=== PATIENT | female | born 1985 ===

== ENCOUNTER 2020-12-21 11:29 | Emergency (ER) | payer MEDICAID ==
[2020-12-21 12:01] VITALS: BP 116/60
[2020-12-21] MEDS ORDERED: ONDANSETRON 4 MG/2 ML INJ IV ONE (12:13)
[2020-12-21] MEDS ORDERED: HYDROmorphone 2 MG/1 ML INJ IV ONE (12:13)
[2020-12-21] MEDS ORDERED: diphenhydrAMINE 50 MG/ML VIAL IV ONE ×2 (12:14→17:17)
--- NOTE | 2020-12-21 12:17 | Emergency Department Report ---
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 Patient states she was on anticoagulation in the past but it was discontinued 6 months ago by her doctor since she had gone quite a while without a recurrent clot and was scheduled for multiple surgical procedures include kidney biopsy. Four days ago on the 12/17 patient had outpatient right knee surgery for tendon injury after dislocation. The next day she developed chest pain and shortness of breath. They were unable to obtain adequate IV for CT angiogram chest therefore she was empirically started on Xarelto for presumed pulmonary embolism. Patient took Xarelto for 2 days but could not tolerate medicine yesterday secondary to nausea and vomiting which exacerbated the pain. Patient was also unable to tolerate her pain medication due to vomiting. Patient caught her [place] affiliated orthopedic surgeon Dr. Alonso was advised to go to the closest ER. Patient complains of severe anterior sharp chest pain that is worse with deep inspiration. Symptoms worse when lying supine. Pain makes it hard to breathe. She has post operative right knee pain with swelling. She has pain and swelling to left hand thenar area since starting to use crutches. Patient has a history of high pain tolerance. Has been treated with ketamine drip in the past but discontinued due to hallucinations. Has been prescribed Percocet 5 mg status post her knee surgery. Patient also complains of generalized pruritus since her surgery and think she was allergic to start the provided during the surgery Severity scale (0 -10): 8 - Related Data Home Medications Medication Instructions Recorded Confirmed Last Taken Xarelto Starter Pack 12/21/20 12/20/20 Previous Rx's Medication Instructions Recorded Last Taken Type Prochlorperazine Maleate 10 mg PO 4XD PRN #20 tablet 12/21/20 Unknown Rx [Compazine] Allergies Allergy/AdvReac Type Severity Reaction Status Date / Time dolasetron [From Anzemet] Allergy Hives Verified 12/21/20 12:05 fentanyl Allergy Swelling Verified 12/21/20 11:31 zolmitriptan [From Zomig] Allergy Swelling Verified 12/21/20 11:31 Heart Score - HEART Score History: Slightly suspicious EKG: Normal Age: < 45 Risk factors: 1-2 risk factors Troponin: < normal limit HEART Score: 1 - EKG Read Time Time EKG Completed: 12:30 EKG Read Time: 12:34 ED Review of Systems ROS: Stated complaint: PE Other details as noted in HPI Comment: All other systems reviewed and negative ED Past Medical Hx - Past Medical History Hx Deep Vein Thrombosis: Yes (Multiple approximately 30) Hx Pulmonary Embolism: Yes (Multiple approximately 6) Additional medical history: Wilma's disease. Focal sclerosing glomerulosclerosis - Surgical History Hx Appendectomy: Yes Additional Surgical History: COLON. Knee surgery 11/2020 - Social History Smoking Status: Current Some Day Smoker Substance Use Type: None - Medications Home Medications: Home Medications Medication Instructions Recorded Confirmed Last Taken Type Prochlorperazine Maleate 10 mg PO 4XD PRN #20 tablet 12/21/20 Unknown Rx [Compazine] Xarelto Starter Pack 12/21/20 12/20/20 History ED Physical Exam - General Limitations: No Limitations - Other Other exam information: General: Moderate distress secondary Head: Atraumatic Eyes: normal appearance ENT: Moist mucous membranes Neck: Normal appearance, no midline tenderness Chest: Clear to auscultation bilaterally, chest wall nontender, pain with deep inspiration CV: Regular rate and rhythm Abdomen: Soft, normal bowel sounds, nontender, nondistended, no rebound or guarding Back: Normal inspection Extremity: Right knee postoperative swelling with Dermabond skin closure. No focal erythema, warmth, or rash. Neuro: Alert O x 3, no facial asymmetry, speech clear, no gross motor sensory deficit Psych: Appropriate behavior Skin: Generalized excoriations from reported pruritus ED Course Vital Signs 12/21/20 12/21/20 12/21/20 11:35 11:59 12:00 Temperature 97.9 F 98.2 F 98.2 F Pulse Rate 85 79 79 Respiratory 20 12 12 Rate Blood Pressure 107/85 116/60 Blood Pressure 116/60 [Left] O2 Sat by Pulse 100 98 98 Oximetry 12/21/20 12:03 Temperature Pulse Rate Respiratory 12 Rate Blood Pressure Blood Pressure [Left] O2 Sat by Pulse 98 Oximetry BOYD score - Boyd Score Age > 65: (0) No Aspirin use within the Past 7 Days: (0) No 3 or more CAD Risk Factors: (0) No 2 or more Angina events in past 24 hrs: (0) No Known CAD with more than 50% Stenosis: (0) No Elevated Cardiac Markers: (0) No ST Deviation Greater than 0.5mm: (0) No BOYD Score: 0 ED Medical Decision Making - Lab Data Result diagrams: 12/21/20 12:14 12/21/20 12:14 Lab Results 12/21/20 12/21/20 12/21/20 Range/Units 12:14 12:14 12:14 WBC 6.4 (4.5-11.0) K/mm3 RBC 3.70 (3.65-5.03) M/mm3 Hgb 10.2 (10.1-14.3) gm/dl Hct 31.5 (30.3-42.9) % MCV 85 (79-97) fl MCH 28 (28-32) pg MCHC 32 (30-34) % RDW 14.3 (13.2-15.2) % Plt Count 163 (140-440) K/mm3 Lymph % (Auto) 10.5 L (13.4-35.0) % Hale % (Auto) 3.9 (0.0-7.3) % Eos % (Auto) 1.0 (0.0-4.3) % Baso % (Auto) 0.1 (0.0-1.8) % Lymph # (Auto) 0.7 L (1.2-5.4) K/mm3 Hale # (Auto) 0.2 (0.0-0.8) K/mm3 Eos # (Auto) 0.1 (0.0-0.4) K/mm3 Baso # (Auto) 0.0 (0.0-0.1) K/mm3 Seg Neutrophils % 84.5 H (40.0-70.0) % Seg Neutrophils # 5.4 (1.8-7.7) K/mm3 PT 16.0 H (12.2-14.9) Sec. INR 1.16 H (0.87-1.13) APTT 38.6 H (24.2-36.6) Sec. Sodium 135 L (137-145) mmol/L Potassium 4.1 (3.6-5.0) mmol/L Chloride 101.3 (98-107) mmol/L Carbon Dioxide 22 (22-30) mmol/L Anion Gap 16 mmol/L BUN 18 H (7-17) mg/dL Creatinine 1.0 (0.6-1.2) mg/dL Estimated GFR > 60 ml/min BUN/Creatinine Ratio 18 % Glucose 91 (65-100) mg/dL Calcium 8.7 (8.4-10.2) mg/dL Troponin T (0.00-0.029) ng/mL HCG, Qual (Negative) 12/21/20 12/21/20 Range/Units 12:14 12:21 WBC (4.5-11.0) K/mm3 RBC (3.65-5.03) M/mm3 Hgb (10.1-14.3) gm/dl Hct (30.3-42.9) % MCV (79-97) fl MCH (28-32) pg MCHC (30-34) % RDW (13.2-15.2) % Plt Count (140-440) K/mm3 Lymph % (Auto) (13.4-35.0) % Hale % (Auto) (0.0-7.3) % Eos % (Auto) (0.0-4.3) % Baso % (Auto) (0.0-1.8) % Lymph # (Auto) (1.2-5.4) K/mm3 Hale # (Auto) (0.0-0.8) K/mm3 Eos # (Auto) (0.0-0.4) K/mm3 Baso # (Auto) (0.0-0.1) K/mm3 Seg Neutrophils % (40.0-70.0) % Seg Neutrophils # (1.8-7.7) K/mm3 PT (12.2-14.9) Sec. INR (0.87-1.13) APTT (24.2-36.6) Sec. Sodium (137-145) mmol/L Potassium (3.6-5.0) mmol/L Chloride (98-107) mmol/L Carbon Dioxide (22-30) mmol/L Anion Gap mmol/L BUN (7-17) mg/dL Creatinine (0.6-1.2) mg/dL Estimated GFR ml/min BUN/Creatinine Ratio % Glucose (65-100) mg/dL Calcium (8.4-10.2) mg/dL Troponin T < 0.010 (0.00-0.029) ng/mL HCG, Qual Negative (Negative) - EKG Data -: EKG Interpreted by Me EKG shows normal: sinus rhythm, ST-T waves (no stemi) Rate: normal (73) - Radiology Data Radiology results: report reviewed CHEST 1 VIEW 12/21/2020 1:33 PM INDICATION / CLINICAL INFORMATION: Shortness of breath. COMPARISON: None available. FINDINGS: SUPPORT DEVICES: None. HEART / MEDIASTINUM: The heart size and pulmonary vasculature are normal. There is an endovascular stent graft in the expected location of the SVC. LUNGS / PLEURA: No significant pulmonary or pleural abnormality. No pneumothorax. ADDITIONAL FINDINGS: No significant additional findings. IMPRESSION: No acute findings. LEFT HAND 3 VIEWS INDICATION / CLINICAL INFORMATION: Left hand pain and swelling at thenar area. COMPARISON: None available. FINDINGS: BONES / JOINT(S): The joint spaces are well-maintained. No significant arthritis. There is no evidence of fracture, subluxation or destructive lesion. SOFT TISSUES: No significant abnormality. I do not identify a radiopaque foreign body. ADDITIONAL FINDINGS: None. IMPRESSION: No acute abnormality is identified. - Medical Decision Making 35-year-old female presents to the hospital complaints of pleuritic chest pains. Multiple pulmonary emboli and DVTs in the past presented with complaints of pleuritic chest pain after right knee surgery while not on anticoagulation. She was apparently started on Xarelto given her clinical history. At time of presentation she complains of severe pleuritic chest pain in addition to vomiting with p.o. intolerance of her medications and concerned that she needs imaging to diagnose of pulmonary embolism. Patient does not have any hypoxia. She is medicated with multiple doses of Dilaudid, Benadryl for itching/pruritus, Ativan, and Zofran. Chest x-ray, troponin, EKG unremarkable patient signed out to oncoming provider to follow-up on imaging results/V/Q Differential includes but not limited to pulmonary embolism, FL, pleurisy, costochondritis Critical Care Time: No Critical care attestation.: If time is entered above; I have spent that time in minutes in the direct care of this critically ill patient, excluding procedure time. ED Disposition Clinical Impression: Status post right knee replacement, History of pulmonary embolus (PE) Contusion of left hand Qualifiers: Encounter type: initial encounter Qualified Code(s): S60.222A - Contusion of left hand, initial encounter Chest pain Qualifiers: Chest pain type: chest pain on breathing Qualified Code(s): R07.1 - Chest pain on breathing Vomiting Qualifiers: Vomiting type: unspecified Vomiting Intractability: non-intractable Nausea presence: with nausea Qualified Code(s): R11.2 - Nausea with vomiting, unspecified Disposition: HOME / SELF CARE / HOMELESS Is pt being admited?: No Condition: Stable Instructions: Nonspecific Chest Pain, Adult, Nausea and Vomiting, Adult, [id number], Contusion, [id number], How to Use Cold Therapy, Pain Without a Known Cause Additional Instructions: Have a bland diet. Drink plenty water. Return for problems. Ice your arm. Continue home medication. Take the blood thinners. Follow-up with your regular doctor. If you do not have a regular doctor, follow-up with the referral physician. Prescriptions: Prochlorperazine Maleate [Compazine] 10 mg PO 4XD PRN #20 tablet PRN Reason: Nausea Referrals: GEORGINA YOO MD [Staff Physician] - 3-5 Days PRIMARY CAREMD [Primary Care Provider] - 3-5 Days
[2020-12-21 12:49] LABS: BUN/Creatinine Ratio 18; Blood Urea Nitrogen 18 mg/dL (7-17); Calcium 8.7 mg/dL (8.4-10.2); Hemolysis Index 3
[2020-12-21 12:56] LABS: Basophils % (Auto) 0.1 % (0.0-1.8); Eosinophils # (Auto) 0.1 K/mm3 (0.0-0.4); Hematocrit 31.5 % (30.3-42.9); Hemoglobin 10.2 gm/dl (10.1-14.3); Lymphocytes # (Auto) 0.7 K/mm3 (1.2-5.4); Lymphocytes % (Auto) 10.5 % (13.4-35.0); Mean Corpuscular HGB Conc 32 % (30-34); Mean Corpuscular Volume 85 fl (79-97); Monocytes # (Auto) 0.2 K/mm3 (0.0-0.8); Monocytes % (Auto) 3.9 % (0.0-7.3); Platelet Count 163 K/mm3 (140-440); Red Cell Distribution Width 14.3 % (13.2-15.2)
[2020-12-21 13:06] LABS: INR 1.16 (0.87-1.13)
[2020-12-21 13:07] LABS: Partial Thromboplastin Time 38.6 Sec. (24.2-36.6)
--- NOTE | 2020-12-21 14:06 | XRay Report ---
CHEST 1 VIEW 12/21/2020 1:33 PM INDICATION / CLINICAL INFORMATION: Shortness of breath. COMPARISON: None available. FINDINGS: SUPPORT DEVICES: None. HEART / MEDIASTINUM: The heart size and pulmonary vasculature are normal. There is an endovascular st ent graft in the expected location of the SVC. LUNGS / PLEURA: No significant pulmonary or pleural abnormality. No pneumothorax. ADDITIONAL FINDINGS: No significant additional findings. IMPRESSION: No acute findings. Signer Name: Faustino Rice MD Signed: 12/21/2020 2:02 PM Workstation Name: [id number]
--- NOTE | 2020-12-21 14:08 | XRay Report ---
LEFT HAND 3 VIEWS INDICATION / CLINICAL INFORMATION: Left hand pain and swelling at thenar area. COMPARISON: None available. FINDINGS: BONES / JOINT(S): The joint spaces are well-maintained. No significant arthritis. There is no evidenc e of fracture, subluxation or destructive lesion. SOFT TISSUES: No significant abnormality. I do not identify a radiopaque foreign body. ADDITIONAL FINDINGS: None. IMPRESSION: No acute abnormality is identified. Signer Name: Faustino Rice MD Signed: 12/21/2020 2:03 PM Workstation Name: [id number]
[2020-12-21] MEDS ORDERED: HYDROmorphone 1 MG/1 ML INJ IV ONE (14:30)
[2020-12-21] MEDS ORDERED: LORazepam 2 MG/ML VIAL IV ONE (14:30)
--- NOTE | 2020-12-21 16:29 | Nuclear Medicine Report ---
NUCLEAR MEDICINE PERFUSION LUNG SCAN INDICATION / CLINICAL INFORMATION: Chest pain, shortness of breath and history of PTE. TECHNIQUE: 5.0 mCi of Tc-99m MAA were given by IV. COMPARISON: Chest radiograph dated 12/21/20 at 1:33 PM. FINDINGS: PERFUSION: There is a single small to moderate segmental perfusion defect in the left mid lung. ADDITIONAL FINDINGS: No corresponding abnormality is seen on the current chest radiograph. IMPRESSION: Indeterminate probability for pulmonary embolism. Signer Name: Faustino Rice MD Signed: 12/21/2020 4:24 PM Workstation Name: [id number]
[2020-12-21] MEDS ORDERED: HALOPERIDOL LACTATE 5 MG/1 ML INJ IV ONE (17:17)
--- NOTE | 2020-12-21 17:20 | Emergency Department Report ---
Blank Doc - Documentation Documentation: Accepted care from Dr. Diana. VQ scan and labs are pending. VQ scan was reviewed. Labs reviewed. At this time, patient was treated symptomatically for a likely pulmonary embolism. She had an indeterminate VQ scan, prior history, and had already been started on Xarelto. We will continue that. She was maintained on anticoagulation. She was maintained on her postoperative analgesics. She was provided a family physician for follow-up.
[2020-12-21] MEDS ORDERED: KETOROLAC 30 MG/1 ML INJ IV ONE (18:08)
--- NOTE | 2020-12-24 18:47 | Electrocardiograph Report ---
[facility] Test Date: 2020-12-21 Test Time: 12:30:36 Pat Name: MAURO DOW Department: Room: Gender: F [employer]: LILLIE : 1985 Requested By: NICHOLE JAMES Order Number: [id number] Reading MD: Shakir De Dios Measurements Intervals [place] Rate: 73 P: 43 WV: 158 QRS: 35 QRSD: 76 T: 27 QT: 381 QTc: 420 Interpretive Statements Sinus rhythm No previous ECG available for comparison Electronically Signed On 12-24-2020 18:47:00 EDT by Shakir De Dios
== END 2020-12-21 18:24 | disposition home or self-care (01) ==
LOC: ED 11:29
DX: S60.222A Contusion of left hand, initial encounter (principal); R07.89 Other chest pain; R11.10 Vomiting, unspecified; F17.200 Nicotine dependence, unspecified, uncomplicated; Z90.49 Acquired absence of other specified parts of digestive tract; Z98.890 Other specified postprocedural states; Z86.711 Personal history of pulmonary embolism; Z86.718 Personal history of other venous thrombosis and embolism; Z88.8 Allergy status to other drugs, medicaments and biological substances; Z79.899 Other long term (current) drug therapy; X58.XXXA Exposure to other specified factors, initial encounter; Y93.89 Activity, other specified; Y92.89 Other specified places as the place of occurrence of the external cause; Y99.8 Other external cause status
CPT/HCPCS: 36415; 71045; 73130; 78580; 80048; 84484; 84703; 85025; 85610; 85730; 93005; 96374; 96375; 96376; 99284; A9540; J1170; J1200; J2060; J2405; J1630; J1885

== ENCOUNTER 2021-04-27 11:11 | Emergency (ER) | payer MEDICARE ==
[2021-04-27 11:21] VITALS: BP 142/81
[2021-04-27] MEDS ORDERED: HYDROmorphone 1 MG/1 ML INJ IV ONE ×2 (11:35→11:51)
[2021-04-27] MEDS ORDERED: METOCLOPRAMIDE 10 MG/2 ML INJ IV ONE (11:37)
--- NOTE | 2021-04-27 11:40 | Emergency Department Report ---
ED General Adult HPI - General Chief complaint: Abdominal Pain Stated complaint: Abdominal pain Time Seen by Provider: 04/27/21 11:24 Source: patient, RN notes reviewed Mode of arrival: Wheelchair Limitations: Physical Limitation - History of Present Illness Initial comments: Private film library clerk at [facility]; Dr. James Arreola The patient is a 35-year-old female. 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 She is referred to the emergency room by her film library clerk. The patient complains of severe diffuse abdominal pain, and she is accompanied by a electric gas appliances demonstrator who endorses that the patient appeared to be confused and not making sense yesterday. Patient reports nausea, low-grade temperature to 100 degrees, denies severe headache, chest pain, diarrhea, dysuria, focal extremity weakness and numbness. She endorses diffuse pruritus. Patient reports that secondary to her multiple chronic issues, she has significant tolerance for opioids, and sometimes has received up to 70 mg of morphine, as well as having received up to 4 to 6 mg ofhydromorphone at once. She received 1 mg of hydromorphone x2 in the emergency room, and this moderately improved her symptoms. She also reports a history of PTSD and anxiety. -: Gradual, hour(s) Location: abdomen Consistency: constant Improves with: medication Worsens with: movement - Related Data Home Medications Medication Instructions Recorded Confirmed Last Taken Xarelto Starter Pack 12/21/20 12/20/20 Previous Rx's Medication Instructions Recorded Last Taken Type Prochlorperazine Maleate 10 mg PO 4XD PRN #20 tablet 12/21/20 Unknown Rx [Compazine] Felix Root [Felix] 250 mg PO QID PRN #30 capsule 04/27/21 Unknown Rx Metoclopramide [Reglan] 10 mg PO QID PRN #30 tablet 04/27/21 Unknown Rx Promethazine [Phenergan SUPPOS] 50 mg NH Q6H PRN #15 04/27/21 Unknown Rx Allergies Allergy/AdvReac Type Severity Reaction Status Date / Time dolasetron [From Anzemet] Allergy Hives Verified 12/21/20 12:05 fentanyl Allergy Swelling Verified 12/21/20 11:31 zolmitriptan [From Zomig] Allergy Swelling Verified 12/21/20 11:31 ED Review of Systems ROS: Stated complaint: SURGERY COMPLICATIONS Other details as noted in HPI Constitutional: fever, malaise, weakness Eyes: denies: eye discharge Respiratory: denies: cough Cardiovascular: denies: chest pain Gastrointestinal: abdominal pain, nausea Genitourinary: denies: dysuria Musculoskeletal: myalgia Skin: pruritus Neurological: weakness, confusion Psychiatric: anxiety ED Past Medical Hx - Past Medical History Hx Deep Vein Thrombosis: Yes (Multiple approximately 30) Hx Pulmonary Embolism: Yes (Multiple approximately 6) Additional medical history: Wilma's disease. Focal sclerosing glomerulosclerosis - Surgical History Hx Appendectomy: Yes Additional Surgical History: COLON. Knee surgery 11/2020 - Social History Smoking Status: Current Some Day Smoker Substance Use Type: None - Medications Home Medications: Home Medications Medication Instructions Recorded Confirmed Last Taken Type Prochlorperazine Maleate 10 mg PO 4XD PRN #20 tablet 12/21/20 Unknown Rx [Compazine] Xarelto Starter Pack 12/21/20 12/20/20 History Felix Root [Felix] 250 mg PO QID PRN #30 capsule 04/27/21 Unknown Rx Metoclopramide [Reglan] 10 mg PO QID PRN #30 tablet 04/27/21 Unknown Rx Promethazine [Phenergan SUPPOS] 50 mg NH Q6H PRN #15 04/27/21 Unknown Rx ED Physical Exam - General Limitations: Physical Limitation, Other (Chaperoned by nurse Mervat Cardenas) General appearance: alert, anxious, in distress, obese - Head Head exam: Present: atraumatic, normocephalic - Eye Eye exam: Present: normal appearance, EOMI. Absent: nystagmus - ENT ENT exam: Present: normal exam, normal orophraynx, mucous membranes moist, normal external ear exam - Neck Neck exam: Present: normal inspection, full ROM. Absent: tenderness, meningismus - Respiratory Respiratory exam: Present: normal lung sounds bilaterally. Absent: respiratory distress, wheezes, rales, rhonchi, stridor, decreased breath sounds - Cardiovascular Cardiovascular Exam: Present: regular rate, normal rhythm, normal heart sounds. Absent: bradycardia, tachycardia, irregular rhythm, systolic murmur, diastolic murmur, rubs, gallop - GI/Abdominal GI/Abdominal exam: Present: soft, tenderness, guarding, other (The abdomen is diffusely tender. Surgical sites do not have any redness, pus or streaking). Absent: distended, rebound, rigid, pulsatile mass - Extremities Exam Extremities exam: Present: normal inspection, full ROM, pedal edema, other (2+ pulses noted in the bilateral upper and lower extremities. There is no palpable cord. negative Homans sign. Muscular compartments are soft. The pelvis is stable.). Absent: calf tenderness - Back Exam Back exam: Present: normal inspection. Absent: tenderness, CVA tenderness (R), CVA tenderness (L), paraspinal tenderness, vertebral tenderness - Neurological Exam Neurological exam: Present: alert, oriented X3, other (No facial droop. Tongue midline. Extraocular movements intact bilaterally. Facial sensation intact to light touch in V1, V2, V3 distribution bilaterally. 5 and a 5 strength in 4 extremities. Sensation intact to light touch in 4 extremities.). Absent: motor sensory deficit - Psychiatric Psychiatric exam: Present: anxious - Skin Skin exam: Present: warm, dry, intact, normal color. Absent: rash ED Course Vital Signs 04/27/21 04/27/21 04/27/21 11:19 12:17 15:07 Temperature 98.1 F Pulse Rate 80 Respiratory 20 Rate Blood Pressure 142/81 O2 Sat by Pulse 98 100 Oximetry O2 Sat by Pulse 98 Oximetry [ Digit-Finger] 04/27/21 16:30 Temperature 97.6 F Pulse Rate 89 Respiratory 18 Rate Blood Pressure O2 Sat by Pulse 98 Oximetry O2 Sat by Pulse Oximetry [ Digit-Finger] - Reevaluation(s) Reevaluation #1: 04/27/21 12:30 Differential diagnosis, including but not limited to: Internal bleeding, abdominal infection, postsurgical complication, intracranial hemorrhage, electrolyte derangement, thyroid derangement, narcotic bowel syndrome, chronic abdominal pain Assessment and plan: 35-year-old female, who is afebrile, with reassuring vital signs, who is clinically sober, presenting with diffuse abdominal pain, an episode of resolved alteration in consciousness. There is no history of trauma. Patient placed on cardiac tech. IV access established. She was given hydromorphone 1 mg x 2, and started on IV fluids. Her EKG is unremarkable. Noncontrast CT scan of the brain, CT scan of the abdomen pelvis with IV contrast will be obtained. We did recommend CT scan of the abdomen pelvis with IV and oral contrast, however, the patient endorsed that she would not be able to drink oral contrast or tolerated. She is hemodynamically stable at this time, protecting her airway, and still in distress, we will reassess after completion of her ER work-up. We will discuss with her surgeon once her initial diagnostic studies have resulted 04/27/21 14:58 I have evaluated this patient multiple times since my initial ER evaluation. After 2 mg of hydromorphone, the patient is sleeping comfortably, in her stretcher, and in no acute distress. Her CT scan of the brain is unremarkable. CT scan of the abdomen pelvis unremarkable for postsurgical findings, demonstrates expected postoperative findings. I contacted her surgeon of record, Dr. Arreola; we discussed the patient's history, physical, laboratory studies imaging studies, and overall clinical impression. Given objective findings, patient improvement, her surgeon advises that it is unlikely to be of any significant utility to transfer this patient for his evaluation this evening, and he further advises that he will be happy to see the patient first thing tomorrow morning at 8:30 in the morning. He also advises that this patient received 26 tablets of Percocet on Wednesday from him. He further advises that this patient's chart and did flagged as possible for na rcotic diversion on the [place] prescription database. There may be a component of narcotic tolerance and/or narcotic seeking tendencies for this patient. However, she is cooperative at this time. I have gone back and discussed the plan of care with the patient to be discharged to follow-up with her surgeon first thing tomorrow morning. She is agreeable to this plan of care. 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 04/26/2021 04/25/2021 1 Oxycodone-Acetaminophen 5-325 26.00 5 Mi Ran [id number] [facility] (2302) 0 39.00 [place]ME [place] 04/21/2021 04/21/2021 1 Qiyhjw-Sutpvrxq-Kxlq 50-325-40 15.00 5 Vi Ran [id number] [facility] (2302) 0 1.50 LME [place] 03/12/2021 03/12/2021 1 Diphenoxylate-Atrop 2.5-0.025 12.00 2 Ja Yos [id number] [facility] (2302) 0 0.00 [place] 03/12/2021 03/10/2021 1 Acetaminophen-Cod #3 Tablet 30.00 5 Ja Yos [id number] [facility] (2302) 0 27.00 MME Medicare [place] 02/10/2021 02/10/2021 1 Hydrocodone-Acetamin 5-325 Mg 24.00 6 Ed Asim [id number] [facility] (2302) 0 20.00 [place]ME [place] 01/09/2021 01/09/2021 1 Oxycodone-Acetaminophen 5-325 24.00 6 Ed Asim [id number] Chris (9261) 0 30.00 MME [place] 12/17/2020 12/17/2020 1 Oxycodone-Acetaminophen 5-325 24.00 6 Ed Asim [id number] [facility] (3289) 0 30.00 MME [place] 12/17/2020 12/12/2020 1 Zolpidem Tartrate 5 Mg Tablet 10.00 10 Ed Asim [id number] [facility] (3289) 0 0.25 LME [place] Disclaimer Showing 1-8 of 8 Items View 15 Items 1 of 1 Providers Total: 4 Showing 1-4 of 4 Items View 15 Items 1 of 1 Name Address City State Zipcode Phone James Arreola MD [address] [facility] [address] [facility] [id number] Molina Lagunas MD [address] [facility] [address] [phone] Murray Wright V, MD [address] [place] [id number] Hugo Alonso Ii, Md, Ii [address], [address] [facility] [id number] Showing 1-4 of 4 Items View 15 Items 1 of 1 Pharmacies Total: 3 Showing 1-3 of 3 Items View 15 Items 1 of 1 Name Address City State Zipcode Phone [facility] [phone] [facility] [address] [facility] [phone] [place] [address] [facility] [phone] [facility] [address] [facility] [address] 04/27/21 15:05 Patient taking Percocet/Tylenol as prescribed. This is the most likely reason for the patient having a Tylenol level of 10.2. She is not homicidal or suicidal - EJ/Peripheral Line Neck L Time Out Performed: Yes Indications: nurses unable to establis Skin Cleansed in Sterile Fashion: Yes Size: 18 Dressing Placed: Tegaderm Patient Tolerated Procedure: well - Pulse Oximetry Interpretation Digit-Finger Initial Pulse Oximetry Readin O2 Sat by Pulse Oximetry: 98 Actions Taken: none ED Medical Decision Making - Lab Data Result diagrams: 04/27/21 11:52 04/27/21 11:52 Vital Signs 04/27/21 11:19 Temperature 98.1 F Pulse Rate 80 Respiratory 20 Rate Blood Pressure 142/81 O2 Sat by Pulse 98 Oximetry Lab Results 04/27/21 04/27/21 04/27/21 Range/Units 11:52 11:52 11:52 WBC 7.7 (4.5-11.0) K/mm3 RBC 3.44 L (3.65-5.03) M/mm3 Hgb 9.6 L (10.1-14.3) gm/dl Hct 28.6 L (30.3-42.9) % MCV 83 (79-97) fl MCH 28 (28-32) pg MCHC 34 (30-34) % RDW 13.8 (13.2-15.2) % Plt Count 215 (140-440) K/mm3 Lymph % (Auto) 19.8 (13.4-35.0) % [place] % (Auto) 6.6 (0.0-7.3) % Eos % (Auto) 0.9 (0.0-4.3) % Baso % (Auto) 0.2 (0.0-1.8) % Lymph # (Auto) 1.5 (1.2-5.4) K/mm3 [place] # (Auto) 0.5 (0.0-0.8) K/mm3 Eos # (Auto) 0.1 (0.0-0.4) K/mm3 Baso # (Auto) 0.0 (0.0-0.1) K/mm3 Seg Neutrophils % 72.5 H (40.0-70.0) % Seg Neutrophils # 5.6 (1.8-7.7) K/mm3 PT 14.0 (12.2-14.9) Sec. INR 0.97 (0.87-1.13) Blood Type A POSITIVE Vital Signs 04/27/21 04/27/21 04/27/21 11:19 12:17 12:32 Temperature 98.1 F Pulse Rate 80 Respiratory 20 Rate Blood Pressure 142/81 O2 Sat by Pulse 98 100 Oximetry O2 Sat by Pulse 98 Oximetry [ Digit-Finger] Lab Results 04/27/21 04/27/21 04/27/21 Range/Units 11:52 11:52 11:52 WBC 7.7 (4.5-11.0) K/mm3 RBC 3.44 L (3.65-5.03) M/mm3 Hgb 9.6 L (10.1-14.3) gm/dl Hct 28.6 L (30.3-42.9) % MCV 83 (79-97) fl MCH 28 (28-32) pg MCHC 34 (30-34) % RDW 13.8 (13.2-15.2) % Plt Count 215 (140-440) K/mm3 Lymph % (Auto) 19.8 (13.4-35.0) % [place] % (Auto) 6.6 (0.0-7.3) % Eos % (Auto) 0.9 (0.0-4.3) % Baso % (Auto) 0.2 (0.0-1.8) % Lymph # (Auto) 1.5 (1.2-5.4) K/mm3 [place] # (Auto) 0.5 (0.0-0.8) K/mm3 Eos # (Auto) 0.1 (0.0-0.4) K/mm3 Baso # (Auto) 0.0 (0.0-0.1) K/mm3 Seg Neutrophils % 72.5 H (40.0-70.0) % Seg Neutrophils # 5.6 (1.8-7.7) K/mm3 PT 14.0 (12.2-14.9) Sec. INR 0.97 (0.87-1.13) Sodium 140 (137-145) mmol/L Chloride 108.5 H (98-107) mmol/L Carbon Dioxide 20 L (22-30) mmol/L Anion Gap 16 mmol/L BUN 14 (7-17) mg/dL Creatinine 0.8 (0.6-1.2) mg/dL Estimated GFR > 60 ml/min BUN/Creatinine Ratio 18 % Glucose 112 H (65-100) mg/dL Lactic Acid (0.7-2.0) mmol/L Calcium 8.8 (8.4-10.2) mg/dL Magnesium (1.7-2.3) mg/dL Total Bilirubin (0.1-1.2) mg/dL Direct Bilirubin (0-0.2) mg/dL Indirect Bilirubin mg/dL AST (5-40) units/L ALT (7-56) units/L Alkaline Phosphatase (35-129) units/L Total Creatine Kinase (30-135) units/L Total Protein (6.3-8.2) g/dL Albumin (3.9-5) g/dL Albumin/Globulin Ratio % HCG, Qual (Negative) Salicylates (2.8-20.0) mg/dL Acetaminophen (10.0-30.0) ug/mL Blood Type Antibody Screen 04/27/21 04/27/21 04/27/21 Range/Units 11:52 11:52 11:52 WBC (4.5-11.0) K/mm3 RBC (3.65-5.03) M/mm3 Hgb (10.1-14.3) gm/dl Hct (30.3-42.9) % MCV (79-97) fl MCH (28-32) pg MCHC (30-34) % RDW (13.2-15.2) % Plt Count (140-440) K/mm3 Lymph % (Auto) (13.4-35.0) % [place] % (Auto) (0.0-7.3) % Eos % (Auto) (0.0-4.3) % Baso % (Auto) (0.0-1.8) % Lymph # (Auto) (1.2-5.4) K/mm3 [place] # (Auto) (0.0-0.8) K/mm3 Eos # (Auto) (0.0-0.4) K/mm3 Baso # (Auto) (0.0-0.1) K/mm3 Seg Neutrophils % (40.0-70.0) % Seg Neutrophils # (1.8-7.7) K/mm3 PT (12.2-14.9) Sec. INR (0.87-1.13) Sodium (137-145) mmol/L Chloride (98-107) mmol/L Carbon Dioxide (22-30) mmol/L Anion Gap mmol/L BUN (7-17) mg/dL Creatinine (0.6-1.2) mg/dL Estimated GFR ml/min BUN/Creatinine Ratio % Glucose (65-100) mg/dL Lactic Acid 1.10 (0.7-2.0) mmol/L Calcium (8.4-10.2) mg/dL Magnesium (1.7-2.3) mg/dL Total Bilirubin 0.20 (0.1-1.2) mg/dL Direct Bilirubin < 0.2 (0-0.2) mg/dL Indirect Bilirubin 0.0 mg/dL AST 21 (5-40) units/L ALT 20 (7-56) units/L Alkaline Phosphatase 71 (35-129) units/L Total Creatine Kinase (30-135) units/L Total Protein 5.9 L (6.3-8.2) g/dL Albumin 3.6 L (3.9-5) g/dL Albumin/Globulin Ratio 1.6 % HCG, Qual Negative (Negative) Salicylates (2.8-20.0) mg/dL Acetaminophen (10.0-30.0) ug/mL Blood Type Antibody Screen 04/27/21 04/27/21 04/27/21 Range/Units 11:52 11:52 11:52 WBC (4.5-11.0) K/mm3 RBC (3.65-5.03) M/mm3 Hgb (10.1-14.3) gm/dl Hct (30.3-42.9) % MCV (79-97) fl MCH (28-32) pg MCHC (30-34) % RDW (13.2-15.2) % Plt Count (140-440) K/mm3 Lymph % (Auto) (13.4-35.0) % [place] % (Auto) (0.0-7.3) % Eos % (Auto) (0.0-4.3) % Baso % (Auto) (0.0-1.8) % Lymph # (Auto) (1.2-5.4) K/mm3 [place] # (Auto) (0.0-0.8) K/mm3 Eos # (Auto) (0.0-0.4) K/mm3 Baso # (Auto) (0.0-0.1) K/mm3 Seg Neutrophils % (40.0-70.0) % Seg Neutrophils # (1.8-7.7) K/mm3 PT (12.2-14.9) Sec. INR (0.87-1.13) Sodium (137-145) mmol/L Chloride (98-107) mmol/L Carbon Dioxide (22-30) mmol/L Anion Gap mmol/L BUN (7-17) mg/dL Creatinine (0.6-1.2) mg/dL Estimated GFR ml/min BUN/Creatinine Ratio % Glucose (65-100) mg/dL Lactic Acid (0.7-2.0) mmol/L Calcium (8.4-10.2) mg/dL Magnesium 1.70 (1.7-2.3) mg/dL Total Bilirubin (0.1-1.2) mg/dL Direct Bilirubin (0-0.2) mg/dL Indirect Bilirubin mg/dL AST (5-40) units/L ALT (7-56) units/L Alkaline Phosphatase (35-129) units/L Total Creatine Kinase 150 H (30-135) units/L Total Protein (6.3-8.2) g/dL Albumin (3.9-5) g/dL Albumin/Globulin Ratio % HCG, Qual (Negative) Salicylates < 0.3 L (2.8-20.0) mg/dL Acetaminophen 10.2 (10.0-30.0) ug/mL Blood Type Antibody Screen 04/27/21 Range/Units 11:52 WBC (4.5-11.0) K/mm3 RBC (3.65-5.03) M/mm3 Hgb (10.1-14.3) gm/dl Hct (30.3-42.9) % MCV (79-97) fl MCH (28-32) pg MCHC (30-34) % RDW (13.2-15.2) % Plt Count (140-440) K/mm3 Lymph % (Auto) (13.4-35.0) % [place] % (Auto) (0.0-7.3) % Eos % (Auto) (0.0-4.3) % Baso % (Auto) (0.0-1.8) % Lymph # (Auto) (1.2-5.4) K/mm3 [place] # (Auto) (0.0-0.8) K/mm3 Eos # (Auto) (0.0-0.4) K/mm3 Baso # (Auto) (0.0-0.1) K/mm3 Seg Neutrophils % (40.0-70.0) % Seg Neutrophils # (1.8-7.7) K/mm3 PT (12.2-14.9) Sec. INR (0.87-1.13) Sodium (137-145) mmol/L Chloride (98-107) mmol/L Carbon Dioxide (22-30) mmol/L Anion Gap mmol/L BUN (7-17) mg/dL Creatinine (0.6-1.2) mg/dL Estimated GFR ml/min BUN/Creatinine Ratio % Glucose (65-100) mg/dL Lactic Acid (0.7-2.0) mmol/L Calcium (8.4-10.2) mg/dL Magnesium (1.7-2.3) mg/dL Total Bilirubin (0.1-1.2) mg/dL Direct Bilirubin (0-0.2) mg/dL Indirect Bilirubin mg/dL AST (5-40) units/L ALT (7-56) units/L Alkaline Phosphatase (35-129) units/L Total Creatine Kinase (30-135) units/L Total Protein (6.3-8.2) g/dL Albumin (3.9-5) g/dL Albumin/Globulin Ratio % HCG, Qual (Negative) Salicylates (2.8-20.0) mg/dL Acetaminophen (10.0-30.0) ug/mL Blood Type A POSITIVE Antibody Screen Negative - EKG Data -: EKG Interpreted by Ut EKG shows normal: sinus rhythm Rate: normal - EKG Data 04/27/21 12:25 The EKG is interpreted at 12: 11 Sinus rhythm, rate 60 bpm. Normal axis, normal P wave axis, normal intervals, nonspecific T wave lead V2. This is an abnormal EKG. This is not a STEMI - Radiology Data Radiology results: pending, report reviewed, image reviewed CT HEAD WITHOUT CONTRAST INDICATION / CLINICAL INFORMATION: On Xarelto, temporary alteration in mental status unable to get out many piercings unremovab le. TECHNIQUE: All CT scans at this location are performed using CT dose reduction for ALARA by means of automated exposure control. COMPARISON: None available. Limitations: Beam hardening artifact from earrings limits evaluation of the inferior aspect of the posterior fossa. FINDINGS: HEMORRHAGE: No evidence of intracranial hemorrhage or extra-axial fluid collection. EXTRA-AXIAL SPACES: Cortical sulci, sylvian fissures and basilar cisterns have an unremarkable appearance. VENTRICULAR SYSTEM: The third and lateral ventricles are of normal size and configuration. CEREBRAL PARENCHYMA: No areas of abnormal brain parenchymal attenuation are identified. There is no indication of recent infarction. MIDLINE SHIFT OR HERNIATION: There is no mass effect. CEREBELLUM / BRAINSTEM: Brainstem and cerebellum have an unremarkable appearance. MIDLINE STRUCTURES:No abnormalities of the pituitary gland or pineal region are identified. INTRACRANIAL VESSELS:No abnormalities are identified on this nonco ntrast head CT. ORBITS: visualized portions of the orbits have an unremarkable appearance. SOFT TISSUES of HEAD: No significant abnormality. CALVARIUM: Evaluation of bone windows reveals no abnormalities. PARANASAL SINUSES / MASTOID AIR CELLS: Visualized portions of the paranasal sinuses are free from inflammatory mucosal disease. Mastoid air cells are normally pneumatized. IMPRESSION: 1. No significant abnormality on head CT without contrast.. Signer Name: Eliseo Meng MD Signed: 04/27/2021 12:38 PM Workstation Name: [id number] CT ABDOMEN AND PELVIS WITH IV CONTRAST, 04/27/2021 INDICATION: Generalized abdominal pain and history of recent surgery. TECHNIQUE: Following the administration of intravenous contrast, multiple axial CT images of the abdomen and pelvis were acquired. Sagittal and coronal reformats were obtained. All CT performed at this facility utilize dose reduction techniques including automated exposure control, iterative reconstruction and weight based dosing when cayla ropriate to reduce patient radiation dose to as low as reasonably achievable. COMPARISON: No prior studies are available for comparison. FINDINGS: Lung bases: Limited imaging of the bilateral lung bases demonstrates no acute abnormality. ABDOMEN: LIVER/BILE DUCTS: No significant abnormality. GALL BLADDER: There has been previous cholecystectomy. STOMACH: No significant abnormality. PANCREAS: No significant abnormality. SPLEEN: No significant abnormality. ADRENALS: No significant abnormality. RIGHT KIDNEY / URETER: No significant abnormality. LEFT KIDNEY / URETER: No significant abnormality. AORTA: The abdominal aorta is normal in caliber. Infrarenal vena cava filter is present. SMALL AND LARGE BOWEL: The small and large bowel are normal in caliber. Post-surgical changes are noted in the right lower quadrant. There is a trace amount of free fluid along the right paracolic gutter. There is a small amount of scattered free air throughout the abdomen. APPENDIX: The appendix is not clearly identified but there are no focal pericecal inflammatory changes. PELVIS: The urinary bladder and uterus appear within normal limits. No free pelvic fluid or adenopathy is visualized. BONES: No significant abnormality. SOFT TISSUES: Evaluation of soft tissues demonstrates a moderate amount of subcutaneous air throughout the anterior abdominal wall. There are multiple prominent collateral vessels within the anterior abdominal wall. IMPRESSION: 1. Small amounts of free air throughout the abdomen with postsurgical changes noted in the right lower quadrant. Trace amount of free fluid is noted along the right paracolic gutter. 2. Moderate subcutaneous air throughout the anterior abdominal wall, likely related to expected post-surgical change. 3. Additional nonacute findings as above. Signer Name: Yvonne Eller MD Signed: 04/27/2021 1:11 PM Workstation Name: [id number] Critical Care Time: Yes Critical care time in (mins) excluding proc time.: 35 Critical care attestation.: If time is entered above; I have spent that time in minutes in the direct care of this critically ill patient, excluding procedure time. ED Disposition Clinical Impression: Anticoagulated, Transient alteration of awareness, History of endometriosis, Postoperative abdominal pain Disposition: 01 HOME / SELF CARE / HOMELESS Is pt being admited?: No Does the pt Need Aspirin: No Condition: Good Instructions: Abdominal Pain (ED) Additional Instructions: Do not take metformin, Motrin, ibuprofen, Naprosyn, Aleve. Please follow-up with your gynecologic surgeon tomorrow. Recommend that patient not drive or operate motor vehicles until cleared to do so by her primary care doctor. Recommend that patient follow-up with a primary care doctor within the next week. Patient may resume her anticoagulation. Cultures were sent today, and results will be available in the next 3 to 5 days. Please have your primary care doctor contact the medical records department. Please return to the emergency room right away with new pain, worsened pain, migration of pain, projectile vomiting, change in mental status, confusion, inability tolerate liquid feeds, new, worsened or different symptoms not present on the initial emergency room evaluation Please continue current outpatient medications. Dr. James Arreola MD [employer]-film library clerk in [place], [place] COVID-19 info: [employer] Address: [address] [place] [address] [address], [place] [address] Closed ? Opens 8:30AM Mon Products and Services: [employer] Appointments: [employer] Patient may take the Reglan and felix tablets as needed for nausea and vomiting. Use the Phenergan suppositories as needed for intractable nausea and vomiting. Prescriptions: Felix Root [Felix] 250 mg PO QID PRN #30 capsule PRN Reason: Nausea Promethazine [Phenergan SUPPOS] 50 mg NH Q6H PRN #15 PRN Reason: Nausea Metoclopramide [Reglan] 10 mg PO QID PRN #30 tablet PRN Reason: Nausea Referrals: [facility] [Provider Group] - 3-5 Days Forms: Work/School Release Form(ED)
[2021-04-27] MEDS: SODIUM CHLORIDE 0.9% 1000 ML 1,000 ML IV ONE ×2 (12:00→12:05)
[2021-04-27 12:11] LABS: Basophils % (Auto) 0.2 % (0.0-1.8); Eosinophils # (Auto) 0.1 K/mm3 (0.0-0.4); Eosinophils % (Auto) 0.9 % (0.0-4.3); Hematocrit 28.6 % (30.3-42.9); Hemoglobin 9.6 gm/dl (10.1-14.3); Lymphocytes # (Auto) 1.5 K/mm3 (1.2-5.4); Lymphocytes % (Auto) 19.8 % (13.4-35.0); Mean Corpuscular HGB Conc 34 % (30-34); Mean Corpuscular Volume 83 fl (79-97); Monocytes # (Auto) 0.5 K/mm3 (0.0-0.8); Monocytes % (Auto) 6.6 % (0.0-7.3); Platelet Count 215 K/mm3 (140-440); Red Blood Count 3.44 M/mm3 (3.65-5.03); Red Cell Distribution Width 13.8 % (13.2-15.2)
[2021-04-27 12:21] LABS: INR 0.97 (0.87-1.13)
[2021-04-27 12:35] LABS: Alanine Aminotransferase 20 units/L (7-56); Albumin 3.6 g/dL (3.9-5)
[2021-04-27 12:42] LABS: Bilirubin,Direct < 0.2 mg/dL (0-0.2)
[2021-04-27 12:44] LABS: BUN/Creatinine Ratio 18; Blood Urea Nitrogen 14 mg/dL (7-17); Calcium 8.8 mg/dL (8.4-10.2); Hemolysis Index 52
--- NOTE | 2021-04-27 13:42 | Cat Scan Report ---
CT HEAD WITHOUT CONTRAST INDICATION / CLINICAL INFORMATION: On Xarelto, temporary alteration in mental status unable to get out many piercings unremovable. TECHNIQUE: All CT scans at this location are performed using CT dose reduction for ALARA by means of automated e xposure control. COMPARISON: None available. Limitations: Beam hardening artifact from earrings limits evaluation of the inferior aspect of the po sterior fossa. FINDINGS: HEMORRHAGE: No evidence of intracranial hemorrhage or extra-axial fluid collection. EXTRA-AXIAL SPACES: Cortical sulci, sylvian fissures and basilar cisterns have an unremarkable appear ance. VENTRICULAR SYSTEM: The third and lateral ventricles are of normal size and configuration. CEREBRAL PARENCHYMA: No areas of abnormal brain parenchymal attenuation are identified. There is no i ndication of recent infarction. MIDLINE SHIFT OR HERNIATION: There is no mass effect. CEREBELLUM / BRAINSTEM: Brainstem and cerebellum have an unremarkable appearance. MIDLINE STRUCTURES:No abnormalities of the pituitary gland or pineal region are identified. INTRACRANIAL VESSELS:No abnormalities are identified on this noncontrast head CT. ORBITS: visualized portions of the orbits have an unremarkable appearance. SOFT TISSUES of HEAD: No significant abnormality. CALVARIUM: Evaluation of bone windows reveals no abnormalities. PARANASAL SINUSES / MASTOID AIR CELLS: Visualized portions of the paranasal sinuses are free from inf lammatory mucosal disease. Mastoid air cells are normally pneumatized. IMPRESSION: 1. No significant abnormality on head CT without contrast.. Signer Name: Eliseo Meng MD Signed: 04/27/2021 1:38 PM Workstation Name: [id number]
--- NOTE | 2021-04-27 14:15 | Cat Scan Report ---
CT ABDOMEN AND PELVIS WITH IV CONTRAST, 04/27/2021 INDICATION: Generalized abdominal pain and history of recent surgery. TECHNIQUE: Following the administration of intravenous contrast, multiple axial CT images of the abdo men and pelvis were acquired. Sagittal and coronal reformats were obtained. All CT performed at this facility utilize dose reduction techniques including automated exposure control, iterative reconstru ction and weight based dosing when appropriate to reduce patient radiation dose to as low as reasonab ly achievable. COMPARISON: No prior studies are available for comparison. FINDINGS: Lung bases: Limited imaging of the bilateral lung bases demonstrates no acute abnormality. ABDOMEN: LIVER/BILE DUCTS: No significant abnormality. GALL BLADDER: There has been previous cholecystectomy. STOMACH: No significant abnormality. PANCREAS: No significant abnormality. SPLEEN: No significant abnormality. ADRENALS: No significant abnormality. RIGHT KIDNEY / URETER: No significant abnormality. LEFT KIDNEY / URETER: No significant abnormality. AORTA: The abdominal aorta is normal in caliber. Infrarenal vena cava filter is present. SMALL AND LARGE BOWEL: The small and large bowel are normal in caliber. Post-surgical changes are not ed in the right lower quadrant. There is a trace amount of free fluid along the right paracolic gutte r. There is a small amount of scattered free air throughout the abdomen. APPENDIX: The appendix is not clearly identified but there are no focal pericecal inflammatory change s. PELVIS: The urinary bladder and uterus appear within normal limits. No free pelvic fluid or adenopath y is visualized. BONES: No significant abnormality. SOFT TISSUES: Evaluation of soft tissues demonstrates a moderate amount of subcutaneous air throughou t the anterior abdominal wall. There are multiple prominent collateral vessels within the anterior ab dominal wall. IMPRESSION: 1. Small amounts of free air throughout the abdomen with postsurgical changes noted in the right lowe r quadrant. Trace amount of free fluid is noted along the right paracolic gutter. 2. Moderate subcutaneous air throughout the anterior abdominal wall, likely related to expected post- surgical change. 3. Additional nonacute findings as above. Signer Name: Yvonne Eller MD Signed: 04/27/2021 2:11 PM Workstation Name: [id number]
[2021-04-27] MEDS ORDERED: hydrOXYzine HCL 10 MG TAB PO ONE (16:00)
--- NOTE | 2021-04-28 13:40 | Electrocardiograph Report ---
[facility] Test Date: 2021-04-27 Test Time: 12:11:44 Pat Name: MAURO DOW Department: Room: Gender: F Migrant Leader: LILLIE : 1985 Requested By: MYRON JENKINS Order Number: [id number] Reading MD: Shakir De Dios Measurements Intervals [place] Rate: 60 P: 80 WI: 159 QRS: 55 QRSD: 81 T: 47 QT: 432 QTc: 432 Interpretive Statements Sinus rhythm Prolonged QT Compared to ECG 12/21/2020 12:30:36 No significant changes Electronically Signed On 04-28-2021 13:40:09 EST by Shakir De Dios
== END 2021-04-27 16:48 | disposition home or self-care (01) ==
LOC: ED 11:11
DX: R40.4 Transient alteration of awareness (principal); Z79.01 Long term (current) use of anticoagulants; N80.9 Endometriosis, unspecified; G89.18 Other acute postprocedural pain
CPT/HCPCS: 36415; 36569; 70450; 74177; 80048; 80076; 82140; 82550; 83735; 84703; 85025; 85610; 86850; 86900; 86901; 87040; 93005; 93010; 96361; 96374; 96375; 96376; 99284; J1170; J2765; J3490; J7030; Q9967; 80320; Q0162; G0480